=== PATIENT | male | born 1970 | race Caucasian/White ===

== ENCOUNTER 2024-11-24 06:22 | Day surgery (SDC) | payer BC, SELFPAY | END 2024-11-24 11:38 | disposition home or self-care (01) | LOC: GI 06:22 | PROVIDERS: ATTENDING PHYSICIAN Internal Medicine Gastroenterology | DX: K63.89 Other specified diseases of intestine (principal); K56.690 Other partial intestinal obstruction; K63.5 Polyp of colon; K64.8 Other hemorrhoids | CPT/HCPCS: 45385; 45380; 88305 ==